=== PATIENT | female | born 1935 | race Asian ===

== ENCOUNTER 2023-05-30 15:04 | Inpatient (IN) | payer MEDICARE, OTHER ==
[~2023-05-30] VITALS: Ht 154.9 cm; Wt 50.1 kg
[2023-05-30] MEDS ORDERED: LEVO25TA9 PO (15:09)
[2023-05-30] MEDS ORDERED: SITA25 PO (15:09)
[2023-05-30] MEDS ORDERED: LOSA-381 PO (15:09)
[2023-05-30 15:27] LABS: COVID AG,FIA SOURCE NASAL SWAB
[2023-05-30] MEDS ORDERED: NITROGLYCERIN 0.4 MG SUBLINGUAL TABLET #25 SL ONE (16:15)
[2023-05-30] MEDS ORDERED: ASPIRIN 81 MG CHEWABLE TABLET PO ONE (16:15)
[2023-05-30 16:16] LABS: EOSINOPHILS % (AUTO) 0.8 % (1.0-6.0); HEMATOCRIT 40.7 % (36-46); HEMOGLOBIN 12.9 g/dL (12.0-16.0); LYMPHOCYTES # (AUTO) 1.9 K/uL (1.0-4.8); LYMPHOCYTES % (AUTO) 29.6 % (22.0-44.0); MEAN CORPUSCULAR HEMOGLOBIN 25.4 pg (26.0-34.0); MEAN CORPUSCULAR HGB CONC 31.8 G/dL (31.0-37.0); MEAN CORPUSCULAR VOLUME 80 fL (80-100); MONOCYTES # (AUTO) 0.4 K/uL (0.1-1.0); MONOCYTES % (AUTO) 6.4 % (2.0-9.0); NEUTROPHILS % (AUTO) 62.2 % (40.0-70.0); PLATELET COUNT (AUTO) 220 K/uL (150-450); RED CELL DISTRIBUTION WIDTH 14.7 % (11.5-14.5)
[2023-05-30 16:36] LABS: ANION GAP 13 mmol/L (8-16); CARBON DIOXIDE 27 mmol/L (22-29); CHLORIDE 100 mmol/L (98-107); CREATININE 1.76 mg/dL (0.60-1.30); GLOMERULAR FILTR. RATE CALC 27 mL/min (>60); GLUCOSE,RANDOM 195 mg/dL (70-110); POTASSIUM 3.3 mmol/L (3.5-5.1); SODIUM SERUM 140 mmol/L (136-145)
[2023-05-30 16:38] LABS: LACTIC ACID 4.5 mmol/L (0.4-2.0)
[2023-05-30 16:39] LABS: B-TYPE NATRIURETIC PEPTIDE 57 pg/mL (0-100)
[2023-05-30 16:41] LABS: ALANINE AMINOTRANSFERASE 11 U/L (12-78); ALBUMIN 3.9 g/dL (3.4-5.0); ALKALINE PHOSPHATASE 68 U/L (46-116); ASPARTATE AMINOTRANSFERASE 15 U/L (15-37); BILIRUBIN,TOTAL 0.3 mg/dL (0.1-1.0); LIPASE 216 U/L (73-393); TOTAL PROTEIN, SERUM 7.6 g/dL (6.4-8.2)
[2023-05-30] MEDS ORDERED: LOSARTAN POTASSIUM 50 MG TABLET PO ONE (20:00)
[2023-05-30] MEDS ORDERED: DEXTROSE 50%-WATER 25 GM/50 ML SYRINGE IVP PRN (20:00)
[2023-05-30] MEDS ORDERED: MORPHINE SULFATE 2 MG/ML SYRINGE IVP PRN (20:00)
[2023-05-30] MEDS ORDERED: ACETAMINOPHEN 325 MG TABLET PO PRN (20:00)
[2023-05-30] MEDS ORDERED: INSULIN REGULAR, HUMAN 100 UNITS/ML SQ PRN (20:00)
[2023-05-30] MEDS ORDERED: NITROGLYCERIN 0.4 MG SUBLINGUAL TABLET #25 SL PRN (20:00)
[2023-05-30 20:36] VITALS: BP 183/97; PULSE 83; RESP 18; TEMP 97.8
[2023-05-30] MEDS ORDERED: HEPARIN SODIUM,PORCINE 5,000 UNITS/ML VIAL SQ SCH (21:00)
[2023-05-30] MEDS: INSULIN GLARGINE,HUM.REC.ANLOG 100 UNITS/ML SQ SCH (22:27)
[2023-05-30] MEDS ORDERED: NITROGLYCERIN 2% (1 GM=INCH) OINTMENT PACKET TP PRN (22:30)
[2023-05-30] MEDS ORDERED: SODIUM CHLORIDE 0.9% 0 ML ONE (23:01)
[2023-05-30] MEDS: SODIUM CHLORIDE 0.9% 500 ML IV SCH (23:05)
[2023-05-30 23:54] VITALS: BP 185/101; PULSE 70; RESP 17; TEMP 97.7
[2023-05-31] VITALS (7 sets, daily range): BP systolic 129–165; BP diastolic 57–80; PULSE 57–77; RESP 17–21; TEMP 97.6–98.1
[2023-05-31] MEDS ORDERED: HydrALAZINE HCL 20 MG/ML VIAL IVP PRN (01:00)
[2023-05-31] MEDS ORDERED: HEPARIN SODIUM,PORCINE 5,000 UNITS/ML VIAL IVP PRN ×2 (04:30)
[2023-05-31] MEDS ORDERED: HEPARIN SODIUM 25000 UNITS/D5W 250 ML IV PRN (04:30)
[2023-05-31] MEDS: METOPROLOL TARTRATE 25 MG TABLET PO SCH ×2 (05:07→20:42)
[2023-05-31 06:01] LABS: GLUCOMETER DEV NAME(LOC) 5N.2C
[2023-05-31 06:27] LABS: BASOPHILS % (AUTO) 0.6 % (0.0-2.0); EOSINOPHILS % (AUTO) 3.3 % (1.0-6.0); HEMATOCRIT 40.5 % (36-46); HEMOGLOBIN 12.8 g/dL (12.0-16.0); LYMPHOCYTES # (AUTO) 2.6 K/uL (1.0-4.8); LYMPHOCYTES % (AUTO) 33.1 % (22.0-44.0); MEAN CORPUSCULAR HEMOGLOBIN 25.2 pg (26.0-34.0); MEAN CORPUSCULAR HGB CONC 31.6 G/dL (31.0-37.0); MEAN CORPUSCULAR VOLUME 80 fL (80-100); MONOCYTES # (AUTO) 0.6 K/uL (0.1-1.0); MONOCYTES % (AUTO) 7.7 % (2.0-9.0); NEUTROPHILS # (AUTO) 4.3 K/uL (1.8-7.7); NEUTROPHILS % (AUTO) 55.3 % (40.0-70.0); PLATELET COUNT (AUTO) 220 K/uL (150-450); RED BLOOD CELL COUNT(AUTO) 5.08 MIL/uL (4.00-5.20); RED CELL DISTRIBUTION WIDTH 14.7 % (11.5-14.5)
[2023-05-31 06:39] LABS: CALCIUM, TOTAL 8.9 mg/dL (8.8-10.5); CREATININE 1.49 mg/dL (0.60-1.30); MAGNESIUM 2.3 mg/dL (1.80-2.40)
[2023-05-31 06:47] LABS: PROTHROMBIN TIME 10.9 SEC (9.4-11.6)
[2023-05-31 08:01] LABS: GLUCOMETER DEV NAME(LOC) 5S.2C
[2023-05-31] MEDS: ASPIRIN 81 MG CHEWABLE TABLET PO SCH (08:21)
[2023-05-31] MEDS: ATORVASTATIN CALCIUM 40 MG TABLET PO SCH (08:21)
[2023-05-31 11:56] LABS: GLUCOMETER DEV NAME(LOC) 5S.2C
[2023-05-31] MEDS ORDERED: LOSA-382 PO (13:16)
[2023-05-31] MEDS ORDERED: LEVO75 PO (13:17)
[2023-05-31] MEDS ORDERED: ATOR40TA28 PO (13:17)
[2023-05-31] MEDS ORDERED: SITA25 PO (13:21)
[2023-05-31] MEDS ORDERED: OXYB5TAB20 PO (13:21)
[2023-05-31] MEDS: LEVOTHYROXINE SODIUM 75 MCG TABLET PO SCH (17:01)
[2023-05-31] MEDS: LOSARTAN POTASSIUM 50 MG TABLET PO SCH (20:42)
[2023-05-31] MEDS: SODIUM CHLORIDE 0.9% 500 ML IV SCH (20:43)
[2023-05-31] MEDS ORDERED: ATORVASTATIN CALCIUM 40 MG TABLET PO SCH (21:00)
[2023-05-31] MEDS: INSULIN GLARGINE,HUM.REC.ANLOG 100 UNITS/ML SQ SCH (21:00)
[2023-05-31 22:56] LABS: GLUCOMETER DEV NAME(LOC) 5N.1C
[2023-05-31 22:56] LABS: GLUCOMETER DEV NAME(LOC) 5N.1C
[2023-06-01 00:19] VITALS: BP 155/79; PULSE 62; RESP 20; TEMP 98.1
[2023-06-01 04:44] VITALS: BP 158/88; PULSE 67; RESP 19; TEMP 97.7
[2023-06-01] MEDS: LEVOTHYROXINE SODIUM 75 MCG TABLET PO SCH (05:59)
[2023-06-01 06:21] LABS: CHOL/HDL RATIO 3.6 (3.9-5.7)
[2023-06-01] MEDS: LOSARTAN POTASSIUM 50 MG TABLET PO SCH ×2 (08:06→20:44)
[2023-06-01] MEDS: ATORVASTATIN CALCIUM 40 MG TABLET PO SCH (08:06)
[2023-06-01] MEDS: METOPROLOL TARTRATE 25 MG TABLET PO SCH ×2 (08:06→20:44)
[2023-06-01] MEDS: ASPIRIN 81 MG CHEWABLE TABLET PO SCH (08:06)
[2023-06-01 08:16] VITALS: BP 105/56; PULSE 69; RESP 19; TEMP 97.8
[2023-06-01 11:36] LABS: GLUCOMETER DEV NAME(LOC) 5N.1C
[2023-06-01 12:06] LABS: GLUCOMETER DEV NAME(LOC) 5N.1C
[2023-06-01 12:32] VITALS: BP 149/93; PULSE 75; RESP 19; TEMP 97.8
[2023-06-01 16:46] VITALS: BP 142/80; PULSE 70; RESP 19; TEMP 97.3
[2023-06-01 19:43] VITALS: BP 154/79; PULSE 70; RESP 18; TEMP 98.6
[2023-06-01] MEDS: SODIUM CHLORIDE 0.9% 500 ML IV SCH (20:44)
[2023-06-01] MEDS: INSULIN GLARGINE,HUM.REC.ANLOG 100 UNITS/ML SQ SCH (20:45)
[2023-06-01 20:51] LABS: GLUCOMETER DEV NAME(LOC) 5N.1C
[2023-06-01 20:51] LABS: GLUCOMETER DEV NAME(LOC) 5N.1C
[2023-06-02 00:09] VITALS: BP 149/76; PULSE 65; RESP 19; TEMP 98.3
[2023-06-02 05:35] VITALS: BP 146/76; PULSE 63; RESP 18; TEMP 97.7
[2023-06-02] MEDS: LEVOTHYROXINE SODIUM 75 MCG TABLET PO SCH (06:30)
[2023-06-02 06:51] LABS: GLUCOMETER DEV NAME(LOC) 5N.1C
[2023-06-02 07:16] VITALS: BP 149/85; PULSE 64; RESP 18; TEMP 98.8
[2023-06-02] MEDS: LOSARTAN POTASSIUM 50 MG TABLET PO SCH (08:58)
[2023-06-02] MEDS: ASPIRIN 81 MG CHEWABLE TABLET PO SCH (08:58)
[2023-06-02] MEDS: METOPROLOL TARTRATE 25 MG TABLET PO SCH (08:58)
[2023-06-02] MEDS ORDERED: ATORVASTATIN CALCIUM 40 MG TABLET PO SCH (09:00)
[2023-06-02 11:51] VITALS: BP 149/66; PULSE 63; RESP 19; TEMP 98.2
[2023-06-02 12:56] LABS: GLUCOMETER DEV NAME(LOC) 5S.2C
[2023-06-02] MEDS ORDERED: ASPI-1450 PO (15:02)
[2023-06-02] MEDS ORDERED: METO25 PO (15:02)
== END 2023-06-02 15:30 | disposition home health service (06) | DRG 682 ==
LOC: EMS 16:17 → 5S 17:47
PROVIDERS: ADMIT Internal Medicine; ATTEND Internal Medicine
DX: N17.9 Acute kidney failure, unspecified (principal); D66 Hereditary factor VIII deficiency; I21.4 Non-ST elevation (NSTEMI) myocardial infarction; E11.65 Type 2 diabetes mellitus with hyperglycemia; E11.22 Type 2 diabetes mellitus with diabetic chronic kidney disease; I12.9 Hypertensive chronic kidney disease with stage 1 through stage 4 chronic kidney disease, or unspecified chronic kidney disease; Z20.822 Contact with and (suspected) exposure to COVID-19; N18.9 Chronic kidney disease, unspecified; E87.6 Hypokalemia; E03.9 Hypothyroidism, unspecified; I25.10 Atherosclerotic heart disease of native coronary artery without angina pectoris; I25.2 Old myocardial infarction; Z63.4 Disappearance and death of family member; Z82.49 Family history of ischemic heart disease and other diseases of the circulatory system; Z86.73 Personal history of transient ischemic attack (TIA), and cerebral infarction without residual deficits; Z90.49 Acquired absence of other specified parts of digestive tract
CPT/HCPCS: 71045; 80048; 80053; 80061; 82962; 83605; 83690; 83735; 83880; 84484; 85025; 85610; 85730; 93005; 93306; 97110; 97116; 97162; 97165; 97530; 97535; 99291; G0378; G0480; J0360; J1644; J1815; J7030; J7040; 36415-L1; 36415-TC; C9803